=== PATIENT | male | born 1990 | race Caucasian/White ===

== ENCOUNTER → 2016-06-09 | Outpatient (CLI) | payer OTHER ==
--- NOTE | 2016-06-09 19:34 | MR ---
EXAMINATION TYPE: MR lumbar spine wo con DATE OF EXAM: 06/09/2016 7:28 PM COMPARISON: NONE HISTORY: Low back pain TECHNIQUE: Multiplanar, multisequence images of the lumbar spine were acquired. L1-L2: Normal disc appearance without desiccation. No herniation, protrusion or disc bulging. No ca nal stenosis is present. Foramina are patent bilaterally. L2-L3: Normal disc appearance without desiccation. No herniation, protrusion or disc bulging. No ca nal stenosis is present. Foramina are patent bilaterally. L3-L4: Normal disc appearance without desiccation. No herniation, protrusion or disc bulging. No ca nal stenosis is present. Foramina are patent bilaterally. L4-L5: Moderate disc desiccation is noted. Subligamentous right paracentral disc herniation effaces t he ventral thecal sac and results in right lateral recess stenosis. There is borderline central steno sis. Foramina are patent. L5-S1: Moderate disc desiccation is noted. Broad-based left paracentral disc herniation with small ex trusion suspected. There is left lateral recess stenosis and left foraminal encroachment. No evidence for central stenosis. Lumbar segments are intact. No paraspinal masses are identified. Conus medullaris has a normal appe arance. IMPRESSION: 1. Degenerative disc disease with disc herniations as discussed above at L4-5 and L5-S1.
== END ==
LOC: RADMRIMAIN 18:32
PROVIDERS: ATTEND Physical Medicine & Rehabilitation
DX: M51.17 Intervertebral disc disorders with radiculopathy, lumbosacral region (principal)
CPT/HCPCS: 72148